=== PATIENT | male | born 1960 | race Two or more races ===

== ENCOUNTER 2022-11-07 16:07 | Inpatient (IN) | payer OTHER ==
[~2022-11-07] VITALS: Ht 162.6 cm; Wt 68.9 kg
[~2022-11-07 16:07] MED LIST: AMBIEN5 MG PO; CIPROFLOXACIN750 MG PO; CLONAZEPAM1 MG PO; DOCUSATE SODIU100 MG PO; LOTREL 5/40 MG1 CAP PO; METHYLPRED4 MG/DOSE- PO; NEURONTIN PO; PERCOCET 5/3251 TAB PO
[2022-11-08] MEDS ORDERED: PROZAC40 MG PO (10:31)
[2022-11-08] MEDS ORDERED: CLONAZEPAM2 MG PO (10:32)
[2022-11-08] MEDS ORDERED: PROZAC20 MG (10:32)
[2022-11-08] MEDS ORDERED: GABAPENT PO (10:33)
[2022-11-08] MEDS ORDERED: LOTREL 10-40 M1 EACH PO (10:33)
[2022-11-08] MEDS ORDERED: TIROSINT75 MCG PO (10:34)
[2022-11-14] MEDS ORDERED: NEURONTIN800 MG PO (08:04)
[2022-11-14] MEDS ORDERED: COLACE100 MG PO (08:04)
[2022-11-14] MEDS ORDERED: AMOX-CLAV 875-1 EACH PO (08:05)
[2022-11-14] MEDS ORDERED: MEDROLPACK PO (08:05)
[2022-11-15] MEDS ORDERED: PERCOCET 5-3251 EACH PO (07:13)
== END 2022-11-15 15:52 | disposition home or self-care (01) | DRG 455 ==
LOC: SURG 11-14 07:00 → PED 11-14 13:00
PROVIDERS: ADMIT Orthopaedic Surgery Orthopaedic Surgery of the Spine; ATTEND Orthopaedic Surgery Orthopaedic Surgery of the Spine
PROC: 0SG0071 Fusion of Lumbar Vertebral Joint with Autologous Tissue Substitute, Posterior Approach, Posterior Column, Open Approach (ICD-10-PCS; 2022-11-14)
PROC: 0ST20ZZ Resection of Lumbar Vertebral Disc, Open Approach (ICD-10-PCS; 2022-11-14)
PROC: 0QB30ZZ Excision of Left Pelvic Bone, Open Approach (ICD-10-PCS; 2022-11-14)
PROC: 07DR0ZZ Extraction of Iliac Bone Marrow, Open Approach (ICD-10-PCS; 2022-11-14)
PROC: XRGB0R7 Fusion of Lumbar Vertebral Joint using Custom-Made Anatomically Designed Interbody Fusion Device, Open Approach, New Technology Group 7 (ICD-10-PCS; principal; 2022-11-14 07:00)
DX: M48.062 Spinal stenosis, lumbar region with neurogenic claudication (principal); M41.56 Other secondary scoliosis, lumbar region; M51.36 Other intervertebral disc degeneration, lumbar region; I10 Essential (primary) hypertension; E03.8 Other specified hypothyroidism

== ENCOUNTER 2025-01-01 09:58 | Inpatient (IN) | payer OTHER ==
[~2025-01-01] VITALS: Ht 121.9 cm; Wt 70.3 kg
[~2025-01-01 09:58] MED LIST changes: +AMOX-CLAV 875-1 EACH PO; +CLONAZEPAM2 MG PO; +COLACE100 MG PO; +GABAPENT PO; +LOTREL 10-40 M1 EACH PO; +MEDROLPACK PO; +NEURONTIN800 MG PO; +PERCOCET 5-3251 EACH PO; +PROZAC20 MG; +PROZAC40 MG PO; +TIROSINT75 MCG PO
[2025-01-01] MEDS ORDERED: AMBIEN CR12.5 MG PO (11:09)
[2025-01-01 11:10] VITALS: BP 152/69
[2025-01-07] MEDS ORDERED: VANCOMYCIN HCL 1,000 MG VIAL ONE ×2 (07:22→09:35)
[2025-01-07] MEDS ORDERED: CEFAZOLIN SODIUM 1,000 MG VIAL ONE (07:23)
[2025-01-07] MEDS ORDERED: AMOX-CLAV 875-1 EACH PO (07:25)
[2025-01-07] MEDS ORDERED: ZOFRAN8 MG PO (07:25)
[2025-01-07] MEDS ORDERED: MEDROLPACK PO (07:25)
[2025-01-07] MEDS ORDERED: PERCOCET 5-3251 EACH PO (07:25)
[2025-01-07] MEDS ORDERED: NEURONTIN800 MG PO (07:26)
[2025-01-07] MEDS ORDERED: GABAPENTIN100 M2 PO (07:26)
[2025-01-07] MEDS ORDERED: COLACE100 MG PO (07:26)
[2025-01-07] MEDS ORDERED: 0.9 % SODIUM CHLORIDE 1,000 ML IV SCH (08:00)
[2025-01-07] MEDS ORDERED: ENALAPRILAT DIHYDRATE 1.25 MG/ML VIAL IV PRN (08:00)
[2025-01-07] MEDS ORDERED: PROMETHAZINE HCL 50 MG/ML AMPUL IM PRN (08:00)
[2025-01-07] MEDS ORDERED: BUPROPION HCL 150 MG TABLET.SA PO SCH (09:00)
[2025-01-07] MEDS ORDERED: DOCUSATE SODIUM 100MG CAP PO SCH (09:00)
[2025-01-07] MEDS ORDERED: VANCOMYCIN HCL 1,000 MG VIAL IV SCH (09:00)
[2025-01-07] MEDS ORDERED: CEFAZOLIN SODIUM 1,000 MG in 0.9 % SODIUM CHLORIDE 50 ML IV SCH (09:00)
[2025-01-07] MEDS ORDERED: METHYLPREDNISOLONE SOD SUCC 125 MG VIAL IV SCH (09:00)
[2025-01-07] MEDS ORDERED: MORPHINE SULFATE 4 MG/ML CARTRIDGE IV SCH (09:00)
[2025-01-07] MEDS ORDERED: TAMSULOSIN HCL 0.4 MG CAP PO SCH (09:00)
[2025-01-07] MEDS ORDERED: METHYLPREDNISOLONE ACETATE 80 MG/ML VIAL ONE (09:34)
[2025-01-07] MEDS ORDERED: METHYLPREDNISOLONE SOD SUCC 125 MG VIAL ONE (09:35)
[2025-01-07] MEDS ORDERED: MORPHINE SULFATE 4 MG/ML VIAL IV ONE ×2 (12:15→14:10)
[2025-01-07 16:50] VITALS: BP 107/58; O2SAT 97
[2025-01-07] MEDS ORDERED: FLUOXETINE HCL 20 MG CAPSULE PO SCH (17:00)
[2025-01-07] MEDS ORDERED: ACETAMINOPHEN 500 MG GEL..CAP PO SCH (20:00)
[2025-01-07] MEDS ORDERED: ZOLPIDEM TARTRATE 10 MG TABLET PO SCH (21:00)
[2025-01-07] MEDS ORDERED: CLONAZEPAM 0.5 MG TABLET PO SCH (21:00)
[2025-01-07] MEDS ORDERED: GABAPENTIN 800 MG TABLET PO SCH (21:00)
[2025-01-08] MEDS ORDERED: SODIUM CHLORIDE 0.45 % 1,000 ML IV SCH
[2025-01-08 00:56] VITALS: BP 128/73; O2SAT 98
[2025-01-08 05:45] VITALS: BP 130/66; O2SAT 100
[2025-01-08] MEDS ORDERED: OxyCODONE HCL 5 MG TABLET (ROXICODONE) PO PRN (06:01)
[2025-01-08 06:53] LABS: BASO % 0.1 % (0.1-1.2); EOS # 0.00 (0.04-0.54); EOS % 0.0 % (0.7-7.0); LYMPH # 0.91 (1.18-3.74); LYMPH % 5.5 % (19.3-53.1); MEAN PLATELET VOLUME 11.20 fl (9.4-12.4); MONO # 0.39 (0.24-0.82); MONO % 2.3 % (4.7-12.5); NEUT # 15.22 (1.56-6.13); NEUT % 91.6 % (34.0-71.1); RED CELL DISTRIBUTION WIDTH 12.4 % (11.6-14.4)
[2025-01-08 07:12] LABS: BUN CREA RATIO 15.0 (7.0-25.0); CREATININE SERUM 0.81 mg/dL (0.70-1.30); GFR 96.24; GLUCOSE FASTING 137.0 mg/dL (65-100); OSMOLALITY SERUM 287.0 MOSM/KG (275-295)
[2025-01-08 08:52] VITALS: BP 136/85; O2SAT 99
[2025-01-08] MEDS ORDERED: FLUOXETINE HCL 20 MG CAPSULE PO SCH (09:00)
[2025-01-08] MEDS ORDERED: CLONAZEPAM 1 MG TABLET PO SCH (09:00)
[2025-01-08 13:24] VITALS: BP 139/77; O2SAT 99
[2025-01-08 16:00] VITALS: BP 143/71; O2SAT 98
[2025-01-08 21:31] VITALS: BP 154/72; O2SAT 100
[2025-01-09] VITALS: BP 148/81; O2SAT 98
[2025-01-09 04:05] VITALS: BP 145/77; O2SAT 98
[2025-01-09 08:15] VITALS: BP 145/80; O2SAT 99
== END 2025-01-09 12:58 | disposition home or self-care (01) | DRG 428 ==
LOC: O/R 01-07 07:52 → SURG 01-07 10:00 → PED 01-07 16:13
PROVIDERS: ADMIT Orthopaedic Surgery Orthopaedic Surgery of the Spine; ATTEND Orthopaedic Surgery Orthopaedic Surgery of the Spine
PROC: 0SG1071 Fusion of 2 or more Lumbar Vertebral Joints with Autologous Tissue Substitute, Posterior Approach, Posterior Column, Open Approach (ICD-10-PCS; 2025-01-07)
PROC: 0ST20ZZ Resection of Lumbar Vertebral Disc, Open Approach (ICD-10-PCS; 2025-01-07)
PROC: 07DR0ZZ Extraction of Iliac Bone Marrow, Open Approach (ICD-10-PCS; 2025-01-07)
PROC: 4A1104G Monitoring of Peripheral Nervous Electrical Activity, Intraoperative, Open Approach (ICD-10-PCS; 2025-01-07)
PROC: XRGC0R7 Fusion of 2 or more Lumbar Vertebral Joints using Custom-Made Anatomically Designed Interbody Fusion Device, Open Approach, New Technology Group 7 (ICD-10-PCS; principal; 2025-01-07 10:00)
DX: M43.16 Spondylolisthesis, lumbar region (principal); M47.27 Other spondylosis with radiculopathy, lumbosacral region; M48.061 Spinal stenosis, lumbar region without neurogenic claudication

== ENCOUNTER 2025-04-15 10:00 | Day surgery (SDC) | payer OTHER ==
[2025-04-08 10:54] VITALS: BP 150/74
[~2025-04-15 10:00] MED LIST changes: +AMBIEN CR12.5 MG PO; +ATORVASTATIN CA10 MG PO; +GABAPENTIN100 M2 PO; +WELLBUTRIN SR150 MG PO; +ZOFRAN8 MG PO
[2025-04-15] MEDS ORDERED: METHYLPREDNISOLONE ACETATE 80 MG/ML VIAL ONE (13:20)
[2025-04-15] MEDS ORDERED: BUPIVACAINE HCL/MPF 0.5% 30ML VIAL ONE (13:23)
[2025-04-15] MEDS ORDERED: SUGAMMADEX SODIUM 200 MG/2 ML VIAL IV ONE (15:26)
== END 2025-04-15 17:30 | disposition home or self-care (01) ==
LOC: CIR.AMB 10:00
PROVIDERS: ATTEND Orthopaedic Surgery Hand Surgery
DX: S63.592A Other specified sprain of left wrist, initial encounter (principal); S63.302A Traumatic rupture of unspecified ligament of left wrist, initial encounter